=== PATIENT | female | born 1935 | race Caucasian/White ===

== ENCOUNTER 2018-08-10 21:49 | Inpatient (IN) | payer MEDICARE, MEDICAID ==
--- NOTE | 2018-08-10 22:30 | ED Physician Chart ---
ED Chief Complaint/HPI - Patient Information Date Seen:: 08/10/18 Time Seen:: 22:15 Chief Complaint:: aggressive behavior History of Present Illness:: Resides at a rehabilitation facility. She states she became angry because her daughter was going through her closet. Allergies:: Allergies Allergy/AdvReac Type Severity Reaction Status Date / Time No Known Allergies Allergy Verified 08/10/18 22:04 Vitals:: Vital Signs - 8 hr 08/10/18 08/10/18 21:50 22:15 Temp 98.6 F 98.4 F HR 79 88 RR 18 15 BP 155/119 233/105 O2 Sat % 93 95 Historian:: Patient Review:: Nurse's Note Reviewed ED Review of Systems - Review of Systems General/Constitutional: No fever, No chills, No weight loss, No weakness, No diaphoresis, No edema, No loss of appetite Skin: No skin lesions, No rash, No bruising Head: No headache, No light-headedness Eyes: No loss of vision, No pain, No diplopia ENT: No earache, No nasal drainage, No sore throat, No tinnitus Neck: No neck pain, No swelling, No thyromegaly, No stiffness, No mass noted Cardio Vascular: No chest pain, No palpitations, No PND, No orthopnea, No edema Pulmonary: No SOB, No cough, No sputum, No wheezing GI: No nausea, No vomiting, No diarrhea, No pain, No melena, No hematochezia, No constipation, No hematemesis G/U: No dysuria, No frequency, No hematuria Musculoskeletal: No bone or joint pain, No back pain, No muscle pain Endocrine: No polyuria, No polydipsia Psychiatric: No prior psych history, No depression, No anxiety, No suicidal ideation Hematopoietic: No bruising, No lymphadenopathy Allergic/Immuno: No urticaria, No angioedema Neurological: No syncope, No focal symptoms, No weakness, No paresthesia, No headache, No seizure, No dizziness, No confusion, No vertigo ED Past Medical History - Past Medical History Past Medical History: HTN, Dyslipidemia, PUD/GERD, Dementia, Other (glaucoma) Family History: HTN, Cancer, Other (insomnia) Social History: Non Smoker, Care Facility, Other (formerly consumed alcohol) Surgical History: Cholecystectomy, Hysterectomy, other (both knees; bilateral mastectomies for multiple benign tumors) Psychiatricy History: Dementia Medication: Reviewed Family Medical History - Family Member Mother History Unknown: Yes ED Physical Exam - Physical Examination General/Constitutional: Awake, Well-developed, well-nourished, Alert, No distress, GCS 15, Non-toxic appearing, Ambulatory Other Gen/Cons comments:: Alert oriented to the approximate date Head: Atraumatic Eyes: Lids, conjuctiva normal, PERRL, EOMI Skin: Nl inspection, No rash, No skin lesions, No ecchymosis, Well hydrated, No lymphadenopathy ENMT: External ears, nose nl, Nasal exam nl, Lips, teeth, gums nl Neck: Nontender, Full ROM w/o pain, No JVD, No nuchal rigidity, No bruit, No mass, No stridor Respiratory: Nl effort/Exclusion, Clear to Auscultation, No Wheeze/Rhonchi/Rales Cardio Vascular: RRR, No murmur, gallop, rubs, NL S1 S2 GI: No tenderness/rebounding/guarding, No organomegaly, No hernia, Normal BS's, Nondistended, No mass/bruits, No McBurney tenderness : No CVA tenderness Extremities: No tenderness or effusion, Full ROM, normal strength in all extremities, No edema, Normal digits & nails Neuro/Psych: Alert/oriented, DTR's symmetric, Normal sensory exam, Normal motor strength, Judgement/insight normal, Mood normal, Normal gait, No focal deficits Misc: Normal back, No paraspinal tenderness ED Labs/Radiology/EKG Results - Lab Results Results: Laboratory Results WBC 11.1 Th/cmm (4.8-10.8) H 08/10/18 22:34 RBC 5.84 Mil/cmm (3.80-5.20) H 08/10/18 22:34 Hgb 16.3 gm/dL (12-16) 08/10/18 22:34 Hct 49.3 % (41.0-60) 08/10/18 22:34 MCV 84.4 fl (81-100) 08/10/18 22:34 MCH 28.0 pg (27.0-31.0) 08/10/18 22:34 MCHC Differential 33.1 pg (28.0-36.0) 08/10/18 22:34 RDW 12.8 % (11.5-20.0) 08/10/18 22:34 Plt Count 282 Th/cmm (150-400) 08/10/18 22:34 MPV 7.5 fl 08/10/18 22:34 Neutrophils % 61.5 % (40.0-80.0) 08/10/18 22:34 Lymphocytes % 30.2 % (20.0-50.0) 08/10/18 22:34 Monocytes % 6.1 % (2.0-10.0) 08/10/18 22:34 Eosinophils % 1.5 % (0.0-5.0) 08/10/18 22:34 Basophils % 0.7 % (0.0-2.0) 08/10/18 22:34 Sodium 134 mEq/L (136-145) L 08/10/18 22:34 Potassium 3.9 mEq/L (3.5-5.1) 08/10/18 22:34 Chloride 98 mEq/L (98-107) 08/10/18 22:34 Carbon Dioxide 26.0 mEq/L (21.0-31.0) 08/10/18 22:34 Anion Gap 13.9 (7.0-16.0) 08/10/18 22:34 BUN 12 mg/dL (7-25) 08/10/18 22:34 Creatinine 0.7 mg/dL (0.6-1.2) 08/10/18 22:34 Est GFR ( Amer) TNP 08/10/18 22:34 Est GFR (Non-Af Amer) TNP 08/10/18 22:34 BUN/Creatinine Ratio 17.1 08/10/18 22:34 Glucose 166 mg/dL (70-105) H 08/10/18 22:34 Calcium 9.4 mg/dL (8.6-10.3) 08/10/18 22:34 Total Bilirubin 0.5 mg/dL (0.3-1.0) 08/10/18 22:34 AST 14 U/L (13-39) 08/10/18 22:34 ALT 13 U/L (7-52) 08/10/18 22:34 Alkaline Phosphatase 113 U/L (34-104) H 08/10/18 22:34 Total Protein 6.8 gm/dL (6.0-8.3) 08/10/18 22:34 Albumin 4.1 gm/dL (3.7-5.3) 08/10/18 22:34 Globulin 2.7 gm/dL 08/10/18 22:34 Albumin/Globulin Ratio 1.5 (1.0-1.8) 08/10/18 22:34 Triglycerides 295 mg/dL (<150) H 08/10/18 22:34 Cholesterol 156 mg/dL (<200) 08/10/18 22:34 LDL Cholesterol Direct 88 mg/dL (75-193) 08/10/18 22:34 HDL Cholesterol 33 mg/dL (23-92) 08/10/18 22:34 ED Septic Shock - . Is Septic Shock (SBP<90, OR Lactate>4 mmol\L) present?: No - <6hrs of presentation: Vital Signs: Vital Signs - 8 hr 08/10/18 08/10/18 21:50 22:15 Temp 98.6 F 98.4 F HR 79 88 RR 18 15 BP 155/119 233/105 O2 Sat % 93 95 ED Reassessment (Disposition) - Diagnosis Diagnosis:: Aggressive behavior; diabetes; hyperglycemia; hypertension - Patient Disposition Admitted to:: [facility] Admitting Medical Physician:: Rufino Williamson Admitting Psych Physician:: Latonya Nelson Condition at Disposition:: Stable, Unchanged
[2018-08-10 22:44] LABS: % BASOPHILS 0.7 % (0.0-2.0); % EOSINOPHILS 1.5 % (0.0-5.0); % LYMPHOCYTES 30.2 % (20.0-50.0); % MONOCYTES 6.1 % (2.0-10.0); % NEUTROPHILS 61.5 % (40.0-80.0); BASOPHILE ABSOLUTE 0.1 Th/cumm (0-0.2); EOSINOPHILE ABSOLUTE 0.2 Th/cmm (0.1-0.4); HEMATOCRIT 49.3 % (41.0-60); HEMOGLOBIN 16.3 gm/dL (12-16); LYMPHOCYTE ABSOLUTE 3.4 Th/cmm (1.5-3.0); MEAN CELL VOLUME 84.4 fl (81-100); MEAN CORPUSCULAR HGB CONC 33.1 pg (28.0-36.0); MEAN PLATELET VOLUME 7.5 fl; MONOCYTE ABSOLUTE 0.7 Th/cmm (0.3-1.0); NEUTROPHILE ABSOLUTE 6.7 Th/cmm (1.8-8.0); PLATELET COUNT 282 Th/cmm (150-400); RED BLOOD COUNT 5.84 Mil/cmm (3.80-5.20); RED CELL DISTRIBUTION WIDTH 12.8 % (11.5-20.0); WHITE BLOOD COUNT 11.1 Th/cmm (4.8-10.8)
[2018-08-10 22:59] LABS: ALB/GLOB RATIO 1.5 (1.0-1.8); ALBUMIN 4.1 gm/dL (3.7-5.3); ALKALINE PHOSPHATASE 113 U/L (34-104); ANION GAP 13.9 (7.0-16.0); BILIRUBIN,TOTAL 0.5 mg/dL (0.3-1.0); BUN - UREA NITROGEN 12 mg/dL (7-25); CALCIUM SERUM 9.4 mg/dL (8.6-10.3); CHLORIDE 98 mEq/L (98-107); CHOLESTEROL 156 mg/dL (<200); CREATININE - SERUM 0.7 mg/dL (0.6-1.2); GLUCOSE 166 mg/dL (70-105); HDL -HIGH DENSITY LIPOPROTEIN 33 mg/dL (23-92); POTASSIUM SERUM 3.9 mEq/L (3.5-5.1); SGOT 14 U/L (13-39); SGPT/ALT 13 U/L (7-52); SODIUM SERUM 134 mEq/L (136-145); TOTAL PROTEIN,SERUM 6.8 gm/dL (6.0-8.3); TRIGLYCERIDES 295 mg/dL (<150)
[2018-08-11] MEDS ORDERED: Acetaminophen 500 MG TAB PO ONE (00:05)
[2018-08-11] MEDS ORDERED: Acetaminophen 500 MG TAB ONE (00:07)
[2018-08-11 02:04] VITALS: BP 128/63
[2018-08-11] MEDS ORDERED: Magnesium Hydroxide (MOM) 30 mL UDC PO PRN (02:04)
[2018-08-11] MEDS: Pantoprazole 40 mg EC Tab PO SCH (06:58)
[2018-08-11] MEDS: INSULIN LISPRO 100 UNIT/ML VIAL SUBQ SCH ×3 (06:58→17:16)
[2018-08-11] MEDS ORDERED: Non-Formulary Item 1 EA (Cranberry Fruit [Cranberry] 450 MG) PO SCH (09:00)
[2018-08-11] MEDS ORDERED: ELUXADOLINE 100 MG PO SCH (09:00)
[2018-08-11] MEDS: Lidocaine 5% Patch TD SCH (09:46)
[2018-08-11] MEDS: Insulin Glargine 100 units/ml 10ml Vial SUBQ SCH (20:34)
[2018-08-11] MEDS: Atorvastatin Calcium 10 MG TAB PO SCH (21:14)
--- NOTE | 2018-08-12 02:41 | History & Physical ---
ADMIT DATE: 08/11/2018 PATIENT IDENTIFICATION: An 83-year-old female. CHIEF COMPLAINT: "My daughter brought me to the hospital. I need to go back to my home." HISTORY OF PRESENT ILLNESS: An 83-year-old female who resides at [facility] where I follow her. The patient was brought into the Emergency Room because the patient was aggressive with her daughter and staff. According to the patient, her daughter came and she started to annoy her by looking at her clothes and invading her privacy. The patient was initially seen by [facility] Emergency Room and now has been admitted to the hospital for further treatment. PAST MEDICAL HISTORY: Remarkable for: 1. 1. Hypertension. 2. 2. Hyperlipidemia. 3. 3. GERD. 4. 4. Question of dementia. 5. 5. History of glaucoma. 6. 6. DJD. 7. 7. Osteoarthritis. 8. Diabetes. 9. Depression. 10. Peripheral vascular disease. 11. Coronary artery disease. HOME MEDICATIONS: The patient is taking multiple medications, which include Tylenol, lisinopril, atorvastatin, BuSpar, ____ , vitamin D3, clonidine, Plavix, donepezil, ____, Lexapro, ibuprofen, insulin, latanoprost, lidocaine, loperamide, Namenda, pantoprazole. SOCIAL HISTORY: She is a resident of long term. No history of smoking cigarette, alcohol, or drug use. FAMILY MEDICAL HISTORY: Remarkable for diabetes, hypertension and cancer. REVIEW OF SYSTEMS: The patient stated that she feels better except her blood pressure goes up every time she sees her daughter, otherwise denies any chest pain, shortness of breath, palpitations, dizziness, nausea, vomiting, diarrhea, dysuria, hematuria, hematochezia, melena. No history of any seizure or syncopal episode. PHYSICAL EXAMINATION: VITAL SIGNS: According to nursing staff, the patient's blood pressure was elevated and clonidine was given. Subsequently, the patient's ____ dropped down. Currently, her blood pressure is reported 113/68. HEENT: Normocephalic, atraumatic. Extraocular muscles are intact. Tongue was pink and coated. Poor dentition noted. NECK: Supple. No JVD, no hepatojugular reflux. No lymphadenopathy, thyromegaly or carotid bruit. HEART: Both heart sounds are regular with positive S3. CHEST AND LUNGS: Equal in expansion with no expiratory wheezing. ABDOMEN: Soft, no guarding, no rigidity. Liver and spleen not palpable. No palpable mass. EXTREMITIES: No edema, no cyanosis or clubbing. Peripheral pulses +2. No calf tenderness noted. NEUROLOGIC: Alert, awake, following commands, 2-12 cranial nerves are intact. Power in upper and lower extremities 5+. Sensation to touch intact. Babinski both toes are going down. No cerebellar sign. 1. AVAILABLE DIAGNOSTIC DATA: White count of 11.1, hemoglobin 16.3, platelet count 282. BUN and creatinine is 12 and 0.7, glucose of 166. Liver functions are normal. TSH is normal. Cholesterol profile is normal at 156 and triglycerides of 295. 2. 3. DIAGNOSTIC STUDIES: EKG, chest x-ray not available for review. IMPRESSION: 1. 1. Agitation and aggressive behavior. Admitted under care of psychiatrist and needs further evaluation. 2. 2. Hypertension. 3. 3. Diabetes. 4. 4. Hyperlipidemia. 5. 5. Degenerative joint disease. 6. 6. Cardiac arrhythmia. 7. 7. Peripheral coronary artery disease. 8. 8. Depression. 9. 9. Dementia. PLAN: 1. 1. Psychiatric evaluation and management deferred to psychiatrist. 2. 2. Appropriate home medicine reconciliation for underlying problem, which include atorvastatin for hyperlipidemia, Plavix for coronary artery disease, Aricept for dementia, ____ for depression, Lantus and lispro for diabetes mellitus along with eyedrops for glaucoma and other medications for symptoms management. General nursing care as ordered. Fall precautions will be provided. Nutrition support will be given and we will continue to follow this patient during the stay in the hospital. JOB# [id number]
--- NOTE | 2018-08-12 03:25 | Psychiatric Evaluation ---
DATE OF SERVICE: 08/11/2018 IDENTIFYING DATA: The patient is an 83-year-old woman, resident of [facility]. Information obtained by directly interviewing the patient as well as reviewing the admission papers and they are reliable. JUSTIFICATION OF HOSPITALIZATION: The patient is admitted here on a voluntary basis in view of her acute agitation and paranoia. CHIEF COMPLAINT: "My daughter is the one doing all these things. I need to go home right away." HISTORY OF PRESENT ILLNESS: This is the first psychiatric hospitalization to [facility] for this patient who is reported to have been frustrated that her daughter coming and then getting into her closets and trying to check all what she has. The patient is reporting that daughter comes under the weekends that she is going to be taking her dirty clothes, but the patient is stating that her daughter has been trying to control her life and the patient has been getting frustrated. The patient at this time has been stating that she also came to find out that her daughter has been trying to get her social security and it has not happened. The patient is stating that she has 2 daughters and the other one disappeared and she is frustrated with the current one. The patient is stating that she needs to go back to the placement and she states that she should not be in here. The patient's coping skills at this time are noted to be poor. Sleep is noted to be poor. Appetite is noted to be fair. PAST PSYCHIATRIC HISTORY: Details are not known, but the patient has been on BuSpar for anxiety. The patient is also reporting that she has been taking the escitalopram 10 mg daily and the patient has been having difficult time to cope with the stress. The patient is insisting that I need to get her to be going right away. SUBSTANCE ABUSE HISTORY: None. PHYSICAL OR SEXUAL ABUSE HISTORY: None. SOCIAL HISTORY: The patient had been 3 times, the last one of cancer. The patient has two daughters, one daughter is very close and she is the one that comes and visits the patient, her name is Carole Santizo. MENTAL STATUS EXAMINATION: The patient is an 83-year-old woman looking her stated age, cooperative. Eye contact is fair. Mood is noted to be irritable. Affect is constricted. The patient's insight and judgment at this time are noted to be still impaired. The patient is very angry and upset, she is insisting that she should be discharged right away. The patient is alert and oriented x 3. Attention span and concentration are fair; however, the patient is not to be paranoid and fixated on her daughter, trying to control her life. The patient is not presenting any threats to harm self or others. The patient's short term memory seems to be poor, fpc memories seems to be fair. DIAGNOSTIC IMPRESSION: AXIS I: Major depressive disorder, recurrent with psychotic symptoms. a. Dementia and behavioral change, secondary trait. AXIS II: None. AXIS III: None. IMMEDIATE TREATMENT PLAN: The patient is going to be observed on inpatient unit, provided with supportive psychotherapy. The patient is going to be closely monitored. Once stabilized, the patient is going to be discharged to self to be followed up at the alf facility. JOB# [id number]
[2018-08-12] MEDS: Pantoprazole 40 mg EC Tab PO SCH (06:50)
[2018-08-12] MEDS: INSULIN LISPRO 100 UNIT/ML VIAL SUBQ SCH ×3 (06:59→16:28)
[2018-08-12] MEDS: Lidocaine 5% Patch TD SCH (08:30)
--- NOTE | 2018-08-12 18:48 | Progress Notes ---
DATE: 08/12/2018 PSYCHIATRIC PROGRESS NOTE SUBJECTIVE: Staff was spoken to. The patient is interviewed. Mood is noted to be less irritable. The patient, however, still focused on her daughter. The patient is stating that she has been trying to control her every movement and she does not want her to be in her life. The patient is still very paranoid. The patient is isolative and withdrawn. The patient states that she likes to eat, and that is the only thing that is keeping her going. ASSESSMENT: The patient is still paranoid. PLAN: To continue the patient with the supportive therapy and I encouraged the patient to verbalize the concerns rather than to act out. JOB# [id number]
[2018-08-12] MEDS: Insulin Glargine 100 units/ml 10ml Vial SUBQ SCH (21:17)
[2018-08-12] MEDS: Atorvastatin Calcium 10 MG TAB PO SCH (21:30)
--- NOTE | 2018-08-13 05:44 | Consultation ---
DATE OF CONSULTATION: 08/12/2018 REFERRING PHYSICIAN: Latonya Nelson MD TYPE OF CONSULTATION: Psychology. HISTORY OF PRESENT ILLNESS: The patient is an 83-year-old female. The patient is a resident of [facility]. The following is by record review and by the patient's self-report. The patient is being admitted due to acute agitation and paranoia. Record review indicates the patient had become frustrated with her daughter coming to do her laundry at her facility and stated that she believes her daughter was trying to control her life in some way. The patient was easily frustrated and during the clinical interview, the patient stated that she believes her daughter is out to get her social security income. The patient is requesting to be discharged immediately and returning to her placement. The patient does not understand why she is being hospitalized. The patient did not answer questions about experiencing any hopelessness or helplessness or wish to . PAST MEDICAL HISTORY: Please see history and physical by Dr. Williamson. PAST PSYCHIATRIC HISTORY: The records do not indicate any previous psychiatric hospitalizations. The patient states no previous treatment by a psychiatrist or psychologist. SUBSTANCE ABUSE HISTORY: The patient declined to answer these questions. PSYCHOSOCIAL HISTORY: The patient states she has been 3 times and that her latest of cancer some years ago. The patient states she has 2 daughters and that one is close to her and that the other one is estranged. The daughter's name, who is involved in her care, is Carole. The patient states her son-in-law, Sterling, is also involved in her care. The patient states that her buddhist affiliation is [employer]. The patient did not answer questions about occupational or educational history. The patient did not answer questions about history of physical or sexual abuse. The patient did not know whether there are any current legal problems, but did state she believes there are financial problems in the family. MENTAL STATUS EXAMINATION: The patient appears to be her stated age. The patient's attitude is superficially cooperative. Eye contact is fair. Speech is spontaneous. Mood is irritable. Affect is constricted. Thought process shows to be confused. The patient denied any suicidal ideation, plan or intention. She denied any auditory or visual hallucinations or delusions. There is some evidence there may be paranoid ideation. The patient's behavior has been demanding towards the staff to be discharged. Impulse control is limited. Concentration is fair. The patient did not participate in the memory assessment. Sensorium is alert and oriented x 3. The patient did not participate in the interpretation of proverbs. Insight is poor. Judgment is compromised. DIAGNOSTIC IMPRESSION: AXIS I: 1. Major depressive disorder, recurrent with psychotic symptoms. 2. Dementia with behavioral disturbance. AXIS II: Deferred. AXIS III: Please see history and physical by Dr. Williamson. TREATMENT PLAN: The patient has been seen by Dr. Nelson for psychiatric evaluation and for the management of the patient's psychotropic medications. We will provide supportive psychotherapy to include reality orientation, differentiation and integration. We will provide de-escalation as well as stress management for the patient to increase her frustration tolerance. We will encourage the patient to demonstrate emotional and self-regulation. We will provide motivational enhancement for the patient to become compliant and stay compliant with all aspects of her care and treatment. We will encourage the patient to verbally contract for safety. Further recommendations include possible family therapy on an outpatient basis or to be provided at her facility with respect to the patient's conflict with her daughter. We will continue supportive psychotherapy and provide coping strategies for phase of life issues throughout the patient's hospital stay and course of treatment. Thank you, Dr. Nelson, for this consult and the opportunity to participate in this patient's care. JOB# [id number] MECHE
[2018-08-13] MEDS: Pantoprazole 40 mg EC Tab PO SCH (06:42)
[2018-08-13] MEDS: INSULIN LISPRO 100 UNIT/ML VIAL SUBQ SCH ×3 (07:07→16:26)
[2018-08-13] MEDS: Lidocaine 5% Patch TD SCH (09:26)
--- NOTE | 2018-08-13 14:29 | Progress Notes ---
DATE: 08/13/2018 SUBJECTIVE: Staff was spoken to. The patient is interviewed. Mood is noted to be irritable. Affect is constricted. Coping skills at this time are noted to be very poor. Insight and judgment also noted to be very much impaired. The patient has been having difficult time to cope with the stress. No side effects to the medications are noted. The patient, however, is very angry and upset about her daughter. The patient is currently maintained on low dose of Seroquel and the patient is encouraged to verbalize the concerns rather than to act out. JOB# [id number]
[2018-08-13] MEDS: Atorvastatin Calcium 10 MG TAB PO SCH (20:56)
[2018-08-13] MEDS: Insulin Glargine 100 units/ml 10ml Vial SUBQ SCH (21:10)
[2018-08-14] MEDS: INSULIN LISPRO 100 UNIT/ML VIAL SUBQ SCH ×2 (06:47→12:07)
[2018-08-14] MEDS: Pantoprazole 40 mg EC Tab PO SCH (06:56)
[2018-08-14] MEDS: Lidocaine 5% Patch TD SCH (12:08)
[2018-08-14] MEDS: Atorvastatin Calcium 10 MG TAB PO SCH (20:31)
[2018-08-14] MEDS: Insulin Glargine 100 units/ml 10ml Vial SUBQ SCH (20:38)
--- NOTE | 2018-08-14 20:58 | Progress Notes ---
DATE: DATE OF SERVICE: 08/14/2018 IDENTIFICATION: An 83-year-old female. SUBJECTIVE: The patient is seen and examined. The patient is lying in the bed. The patient is angry and upset about her daughter. The patient denies any chest pain or shortness of breath. No palpitation or dizziness. PHYSICAL EXAMINATION: VITAL SIGNS: Temperature 98.5, pulse 64, respiratory rate 18, blood pressure 145/74. HEENT: Poor dentition. NECK: Supple. No JVD, no lymphadenopathy, no thyromegaly. HEART: Both heart sounds are regular. CHEST AND LUNGS: Equal in expansion, no expiratory wheezing. ABDOMEN: Soft. No guarding or rigidity. Bowel sounds present. No palpable mass. EXTREMITIES: No edema. NEUROLOGIC: Alert, awake, following commands. AVAILABLE DIAGNOSTIC DATA: None for my review. CLINICAL IMPRESSION: 1. Hypertension. 2. Diabetes. 3. Hyperlipidemia. 4. Peripheral vascular disease. 5. Dementia. 6. Degenerative joint disease. 7. History of cerebrovascular accident. 8. High risk for fall. PLAN: 1. Monitor blood sugar and blood pressure. 2. Diabetes management. 3. Antihypertensive medicine. 4. Statin. 5. Nutritional support. 6. General nursing care. 7. Psychotic evaluation and management deferred to Psychiatry. 8. Care plan reviewed and discussed with staff. JOB# [id number]
--- NOTE | 2018-08-15 03:29 | Progress Notes ---
DATE: 08/14/2018 SUBJECTIVE: Staff was spoken to. The patient is interviewed. Mood is noted to be irritable. Affect is constricted. The patient's insight and judgment is noted to be still impaired. Impulse control is noted to be poor. The patient has been very paranoid and has been focusing on her daughter, trying to control her life. The patient has no insight into her illness. ASSESSMENT: The patient is still very paranoid. PLAN: To continue the patient with current medications and follow. [facility]# [id number]
[2018-08-15] MEDS: INSULIN LISPRO 100 UNIT/ML VIAL SUBQ SCH ×3 (06:56→16:54)
[2018-08-15] MEDS: Lidocaine 5% Patch TD SCH (08:40)
[2018-08-15] MEDS: Pantoprazole 40 mg EC Tab PO SCH (08:46)
[2018-08-15] MEDS: Atorvastatin Calcium 10 MG TAB PO SCH (21:12)
[2018-08-15] MEDS: Insulin Glargine 100 units/ml 10ml Vial SUBQ SCH (21:13)
--- NOTE | 2018-08-16 02:20 | Progress Notes ---
DATE: 08/14/2018 PSYCHOLOGY PROGRESS NOTE DATE OF SERVICE: 08/14/2018 SUBJECTIVE: The patient is seen in her room. Case is discussed with staff. The patient presents as labile and tearful as well as frustrated. The patient continued to express concerns about her daughter and her daughter's involvement in her care. The patient continues to state that she feels her daughter's involvement is intrusive and controlling. The patient is fixated on this issue. The patient is requesting to be discharged today. OBJECTIVE: Mood is irritable and depressed. Affect is labile and tearful. Thought process includes perseveration on her conflicted relationship with her daughter as well as discharge. There is some evidence of paranoid ideation present. The patient denied any hallucinations. The patient's behavior indicates difficulty with accepting her treatment. The patient has poor insight into her illness. ASSESSMENT AND PLAN: The patient's suspiciousness and persecutory thought process persists. We provided reality orientation and integration. We provided insight-oriented and reflective listening to assist the patient in processing her emotional reactivity towards her daughter. The patient's thought process continues to be concrete and her perception about her relationship with her daughter is inflexible. We will continue to provide problem solving as well as solution-focused therapy. We will provide stress management to assist the patient in increasing her frustration tolerance. We provided reality differentiation and integration. We suggested that the patient and her daughter follow up with family therapy on an outpatient basis. We provided coping strategies for phase of life issues as well. We will follow up in 2 days to continue the present treatment if the patient is still admitted on the unit. [facility]# [id number] MECHE
--- NOTE | 2018-08-16 05:22 | Progress Notes ---
DATE: 08/15/2018 PSYCHIATRIC PROGRESS NOTE SUBJECTIVE: Staff was spoken to. The patient is interviewed. Mood is noted to be irritable. Affect is constricted. The patient is still focused on her daughter. The patient reports that the daughter has the durable power of physical therapy teacher ____. She has been controlling her life ever since and she signed the paper. The patient feels frustrated at this time. Insight and judgment at this time are noted to be still impaired. Impulse control is noted to be poor. Coping skills are noted to be poor. The patient is on Seroquel and has been able to tolerate the medication. ASSESSMENT: The patient is still paranoid. PLAN: To continue the patient with the supportive therapy and followup. [facility]# [id number]
[2018-08-16] MEDS: INSULIN LISPRO 100 UNIT/ML VIAL SUBQ SCH ×2 (06:37→11:51)
[2018-08-16] MEDS: Pantoprazole 40 mg EC Tab PO SCH (06:37)
[2018-08-16] MEDS: Lidocaine 5% Patch TD SCH (08:03)
--- NOTE | 2018-08-17 04:08 | Progress Notes ---
DATE: 08/16/2018 PSYCHOLOGY PROGRESS NOTE SUBJECTIVE: The patient is seen and is interviewed. Case is discussed with staff. The patient presents as frustrated with her plan for discharge. The patient continued to perseverate on her conflicted relationship with her daughter. The patient is compliant with her medication. According to the staff, the patient continues to be obstinate with respect to addressing her poor relationship with her daughter. The patient did respond to a problem solving approach. OBJECTIVE: Mood is less irritable. Affect is constricted. Thought process includes perseveration on her problem with her daughter. The patient is at times cognitively redirectable. The patient denied any hallucinations or delusions. Suspiciousness of how she is being treated persists. The patient's behavior has been mostly compliant with her care and treatment. ASSESSMENT AND PLAN: The patient's allegations regarding her daughter's interference with her long-term care at her facility persist. We provided coping strategies for phase of life issues. This tag writer introduced a simple problem solving and solution focused approach for the patient to begin to communicate with her daughter and to resolve their conflict. The patient responded fairly well to the conflict resolution offered. We provided reality integration. We encouraged the patient to continue with a psychologist who may be able to provide relationship therapy and family therapy at her facility. No followup is indicated. The staff reports that the patient is discharging today. Prognosis is fair. JOB# [id number] MTDD
--- NOTE | 2018-08-17 05:40 | Progress Notes ---
DATE: 08/16/2018 PSYCHIATRIC PROGRESS NOTE SUBJECTIVE: Staff was spoken to. The patient is interviewed. Mood is noted to be anxious. Affect is appropriate. The patient continues to be paranoid. The patient has been having difficult time to cope with the care. The patient is stating that her daughter is the major concern that she ended up in the hospital and she had not been here. The patient is stating that the daughter should be taken out of her life and the patient is stating that she is going to be consulting an patent prosecution attorney. ASSESSMENT: The patient is still paranoid, but is not suicidal or homicidal. PLAN: To discharge the patient back to the facility for followup on outpatient basis. [facility]# [id number]
--- NOTE | 2018-08-19 22:54 | Discharge Summary ---
DATE OF DISCHARGE: 08/16/2018 PSYCHIATRIC DISCHARGE SUMMARY IDENTIFYING DATA: The patient is an 83-year-old woman, resident of [facility]. Information obtained by directly interviewing the patient as well as reviewing the admission papers. JUSTIFICATION OF HOSPITALIZATION: The patient is admitted on a voluntary basis in view of her acute agitation and paranoia. CHIEF COMPLAINT: "My daughter is the one doing all these things, I need to go home right away." DIAGNOSES AT THE TIME OF ADMISSION: AXIS I: A. Major depressive disorder, recurrent, with psychotic symptoms. B. Dementia and behavioral changes, secondary trait. AXIS II: None. AXIS III: As per the primary care physician. HISTORY OF PRESENT ILLNESS: Please refer to the 08/11/2018 dictation done by me. PHYSICAL EXAMINATION: Done by Dr. Williamson, is noted to be within normal limits. HOSPITAL COURSE AND RESPONSE TO TREATMENT: The patient has been closely monitored, encouraged to participate in the groups and verbalize the concerns. The patient has been preoccupied with the daughter controlling her life and being the power of admitted attorneys has been having the power on her finances and the patient is feeling frustrated. The patient has been started with 10 mg of Lexapro, and Seroquel has been added at 12.5 mg, it was gradually increased to 25 mg. With these medications, the patient was observed and was noted to be doing fairly well. The patient was not noted to be suicidal or homicidal and hence the patient was discharged on 08/16/2018 with the recommendation that she is going to be seeking treatment on an outpatient basis. MENTAL STATUS EXAMINATION AT THE TIME OF DISCHARGE: The patient's mood is noted to be anxious. Affect is appropriate. Insight and judgment are noted to be improving. Impulse control is noted to be fair. The patient is not suicidal or homicidal. Coping skills are noted to be fair at the time of the discharge. CONDITION AT THE TIME OF DISCHARGE: Noted to be stable. DIAGNOSES AT THE TIME OF DISCHARGE: AXIS I: A: Major depressive disorder, recurrent and moderate, with psychotic symptoms. B: Dementia and behavioral changes, secondary trait. AXIS II: None. AXIS III: None. AFTERCARE PLAN: The patient is discharged to [facility], to be followed up on an outpatient basis. PROGNOSIS AT THE TIME OF DISCHARGE: Noted to be fair with treatment. [facility]# [id number]
== END 2018-08-16 14:05 | DRG 885 ==
LOC: ER 21:49 → GERO2 08-11 01:05
PROVIDERS: ADMIT Psychiatry & Neurology Psychiatry; ATTEND Psychiatry & Neurology Psychiatry
DX: F33.3 Major depressive disorder, recurrent, severe with psychotic symptoms (principal); E11.65 Type 2 diabetes mellitus with hyperglycemia; F03.91 Unspecified dementia, unspecified severity, with behavioral disturbance; I10 Essential (primary) hypertension; E78.5 Hyperlipidemia, unspecified; K21.9 Gastro-esophageal reflux disease without esophagitis; H40.9 Unspecified glaucoma; M19.90 Unspecified osteoarthritis, unspecified site; E11.51 Type 2 diabetes mellitus with diabetic peripheral angiopathy without gangrene; I25.10 Atherosclerotic heart disease of native coronary artery without angina pectoris; Z79.4 Long term (current) use of insulin; Z91.81 History of falling; Z90.49 Acquired absence of other specified parts of digestive tract; Z90.710 Acquired absence of both cervix and uterus; Z90.13 Acquired absence of bilateral breasts and nipples; Z86.73 Personal history of transient ischemic attack (TIA), and cerebral infarction without residual deficits
CPT/HCPCS: 36415-UA; 80053-TC; 80061-TC; 82948-90; 84443-TC; 85025-TC; 86592-TC; 93005; J1815; Z7610